=== PATIENT | female | born 1985 | race Caucasian/White ===

== ENCOUNTER 2017-04-16 19:03 | Emergency (ER) | payer MEDICAID, OTHER ==
[~2017-04-16] VITALS: Ht 154.9 cm; Wt 137.0 kg
[2017-04-16] MEDS ORDERED: IBUPROFEN 600MG TABLET PO STA (20:13)
[2017-04-16 20:32] LABS: BASOPHILS % 0.6 % (0.0-2.0); EOSINOPHILS % 1.2 % (0.0-5.0); HEMATOCRIT. 36.3 % (36.0-48.0); HEMOGLOBIN. 10.8 g/dL (12.0-16.0); LYMPHOCYTES % 23.3 % (20.0-50.0); MEAN CORPUSCULAR HEMOGLOBIN 20.5 pg (28.0-32.0); MEAN CORPUSCULAR VOLUME 68.7 fL (81.0-99.0); MEAN PLATELET VOLUME 7.6 fl (7.4-10.4); MONOCYTES % 8.3 % (2.0-8.0); NEUTROPHILS % 66.6 % (40.0-76.0); PLATELET 364 x1000/uL (130-400); RED BLOOD CELL COUNT 5.28 mill/uL (4.2-5.4); RED CELL DISTRIBUTION WIDTH 17.8 % (11.6-14.6)
[2017-04-16 20:35] LABS: CHLORIDE 103 mEq/L (98-107)
[2017-04-16 20:38] LABS: CARBON DIOXIDE 30 mEq/L (21-32)
[2017-04-16 20:49] LABS: PLATELET ESTIMATE NORMAL
[2017-04-16] MEDS ORDERED: IBUPROFEN 600MG TABLET ONE (20:51)
[2017-04-16 22:00] VITALS: BP 121/80
== END 2017-04-17 07:30 | disposition home or self-care (01) ==
LOC: ER 04-17 07:25
DX: R07.89 Other chest pain (principal); Z87.01 Personal history of pneumonia (recurrent)
CPT/HCPCS: 36415; 71010; 80053; 81025; 85025; 93005; 99285

== ENCOUNTER 2017-04-17 18:55 | Emergency (ER) | payer MEDICAID, OTHER ==
[~2017-04-17] VITALS: Ht 154.9 cm; Wt 137.0 kg
[2017-04-17 23:25] VITALS: BP 140/80
== END 2017-04-17 23:25 | disposition home or self-care (01) ==
LOC: ER 21:02
DX: R07.89 Other chest pain (principal); E11.9 Type 2 diabetes mellitus without complications; I10 Essential (primary) hypertension; Z87.01 Personal history of pneumonia (recurrent); Z98.890 Other specified postprocedural states
CPT/HCPCS: 71020; 99284